=== PATIENT | male | born 1985 | race Caucasian/White ===

== ENCOUNTER 2018-01-03 15:28 | Emergency (ER) | payer MEDICAID ==
[~2018-01-03] VITALS: Ht 172.7 cm; Wt 85.9 kg
[2018-01-03 15:35] VITALS: BP 151/87
[2018-01-03] MEDS ORDERED: PENI500T2 PO (16:22)
== END 2018-01-03 16:34 | disposition home or self-care (01) ==
LOC: ER 15:29
DX: K05.219 Aggressive periodontitis, localized, unspecified severity (principal); G89.18 Other acute postprocedural pain; Z88.0 Allergy status to penicillin
CPT/HCPCS: 99283

== ENCOUNTER 2019-03-19 13:57 | Emergency (ER) | payer MEDICAID ==
[~2019-03-19] VITALS: Ht 172.7 cm; Wt 81.0 kg
[~2019-03-19 13:57] MED LIST: NITR100C6 PO
[2019-03-19 14:09] VITALS: BP 106/74
[2019-03-19] MEDS ORDERED: azithromycin 250mg tablet PO ONE (14:55)
[2019-03-19] MEDS ORDERED: penicillin G benzathine 1.2 million unit/2ml syringe IM ONE (15:10)
[2019-03-21 08:18] LABS: RPR Non Reactive (Non Reactive)
== END 2019-03-19 15:35 | disposition home or self-care (01) ==
LOC: ER 13:57
DX: R21 Rash and other nonspecific skin eruption (principal); F12.90 Cannabis use, unspecified, uncomplicated; Z88.5 Allergy status to narcotic agent; Z88.8 Allergy status to other drugs, medicaments and biological substances; Z79.899 Other long term (current) drug therapy
CPT/HCPCS: 36415; 86592; 87491; 87591; 96372; 99283; J0561